=== PATIENT | female | born 1980 | race African-American/Black ===

== ENCOUNTER 2022-10-18 00:21 | Day surgery (SDC) | payer OTHER, SELFPAY ==
[2022-08-24 13:13] VITALS: BMI 31.7
--- NOTE | 2022-08-24 13:17 | PC.NURSE ---
Report to the Outpatient Waiting Room, entrance under the green pavilion located off [facility], at time 0700 on date 09/10/22. Planned Procedure Time: 0900. Time changes happen often and if your time is changed the preop area will call you the afternoon before. - You and your visitor will be asked to self-screen and do not enter if you have any COVID symptoms. - Only one visitor is requested with a max of two and NO children visitors are allowed at this time. - The patient visitor may be requested to leave or wait in car when not with patient due to distancing restrictions. - A mask is REQUIRED within the hospital. Patients may have clear liquids (water, carbonated beverages, clear teas, apple juice) until 3 hours prior to surgery with a maximum of 20 ounces. - No food from midnight until time of surgery Take the following medications with a SIP of water the morning of surgery: N/A Medications to discontinue per physician: N/A Date to take last dose: N/A Please no make-up, nail vincentian, hairspray, perfume, deodorant, or body powder the day of surgery. No jewelry (including any body piercings) or valuables the day of surgery, leave them at home. Please take a shower or bath the night before, or the morning of, surgery with an antibacterial soap. Wear comfortable, loose fitting clothing. - Jewelry must be removed prior to entering the operating room. Rings and piercings that are not removed may be cut off. - The hospital will not accept responsibility for valuables. - Please leave all valuables, including medications, at home the day of surgery. If you are going home after surgery, a licensed front end loader driver must drive you home. - NO public transportation without another adult if you receive anesthesia. - We recommend that an adult stay with you for 24 hours following discharge. - We also recommend that you do not drive, make important decision, drink alcoholic beverages, or take any drugs that were not prescribed by your health care provider for at least 24 hours after your discharge time. Follow any additional instructions given to you from your surgeon. If you or anyone in your household have experienced Covid symptoms in the past week, please notify your surgeon or the nurse liaison at the phone number below for possible testing. Telephone instructions given to PT - JOE LEAL and asked if any additional questions and then verbalized understanding. Patient advised to call surgeon office or pre surgery nurse liaison [phone] if any additional questions.
--- NOTE | 2022-09-09 11:08 | P.HP_ITS ---
H&P: HPI History of Present Illness Date/Time: 09/09/22 11:08 Chief Complaint: desire for sterilization Narrative: Michelle is a 42yo P2010, who presented to clinic as a new patient to discuss tubal/paragard. She has had this paragard in place since 2011; reports her cycles did get heavier and prolong but she did not want hormones. She knows she does not want any more children; would like to proceed with tubal. Review of Systems Constitutional: Constitutional: Denies chills, Denies fever(s) and Denies headache(s) Eyes: Eyes: Denies change in vision ENT: Denies dizziness and Denies headache(s) Cardiovascular: Cardiovascular: Denies chest pain and Denies dyspnea Respiratory: Respiratory: Denies cough and Denies dyspnea Gastrointestinal: Gastrointestinal: Denies abdominal pain and Denies change in stool character Genitourinary: Genitourinary: Denies abnormal menses, Denies pelvic pain, Denies vaginal discharge, Denies vaginal odor and Denies vaginal pruritus Neurologic: Denies dizziness and Denies headache(s) Psychiatric: Psychiatric: Denies anxiety and Denies depression [facility] Surgical History Surgical History (Updated 06/21/22 @ 08:49 by Yumi Rae MA) H/O gynecological procedure paragard insertion 2011 Family History Family History Grandparent Breast cancer Social History Social History (Updated 06/21/22 @ 08:50 by Yumi Rae MA) Smoking status: Never smoker Alcohol intake: current Alcohol use details: SOCIAL Substance use: current Substance use type: marijuana Living arrangements: with family Additional living arrangements comments: CHILDREN Gender identity (if verbalized by the patient): Female Spiritual care concerns: No Meds Home Medications and Allergies Home Medications Medication Instructions Recorded Confirmed Type copper 380 square mm intrauterine 1 device intrauterine ONCE 06/21/22 08/24/22 History device (ParaGard T 380A) Allergies Allergy/AdvReac Type Severity Reaction Status Date / Time hepatitis A virus vaccine Allergy Swelling Verified 08/24/22 13:13 Exam Const: General: cooperative, healthy appearing, comfortable and no acute d istress Orientation/consciousness: patient oriented x3 Resp: Effort & Inspection: normal respiratory effort Cardio: Rate: regular rate GI: Inspection: normal to inspection GI Palp: No abdominal tenderness and Yes Soft to palpation : Other: deferred to OR Skin: General skin exam: normal color Neuro: General: patient oriented x3 Extrem: General: normal to inspection Psych: Appearance: grossly normal Affect: normal affect Attitude: co operative Assessment and Plan Assessment and plan (1) Admission for sterilization: Code(s): Z30.2 - Encounter for sterilization Status: Acute (2) IUD (intrauterine device) in place: Code(s): Z97.5 - Presence of (intrauterine) contraceptive device Status: Acute Plan - proceed with laparoscopic bilateral tubal with IUD removal (possible h ysteroscopy) - risks and benefits explained in detail - [place] ster[place] form signed 06/21/22
[2022-10-04 11:35] VITALS: BMI 31.7
--- NOTE | 2022-10-04 11:36 | PC.NURSE ---
Report to the Outpatient Waiting Room, entrance under the green pavilion located off [facility], at time 0600 on date 10/18/22. Planned Procedure Time: 0730. Time changes happen often and if your time is changed the preop area will call you the afternoon before. - You and your visitor will be asked to self-screen and do not enter if you have any COVID symptoms. - Only one visitor is requested with a max of two and NO children visitors are allowed at this time. - The patient visitor may be requested to leave or wait in car when not with patient due to distancing restrictions. - A mask is optional within the hospital at this time. Patients may have clear liquids (water, carbonated beverages, clear teas, apple juice) until 3 hours prior to surgery with a maximum of 20 ounces. - No food from midnight until time of surgery Take the following medications with a SIP of water the morning of surgery: N/A DO NOT STOP ANY OF YOUR OTHER PRESCRIPTION MEDICATIONS PRIOR TO SURGERY EXCEPT THE FOLLOWING Medications to discontinue per physician: N/A Date to take last dose: N/A Please no make-up, nail malawian, hairspray, perfume, deodorant, or body powder the day of surgery. No jewelry (including any body piercings) or valuables the day of surgery, leave them at home. Please take a shower or bath the night before, or the morning of, surgery with an antibacterial soap. Wear comfortable, loose fitting clothing. - Jewelry must be removed prior to entering the operating room. Rings and piercings that are not removed may be cut off. - The hospital will not accept responsibility for valuables. - Please leave all valuables, including medications, at home the day of surgery. If you are going home after surgery, a licensed shuttle driver must drive you home. - NO public transportation without another adult if you receive anesthesia. - We recommend that an adult stay with you for 24 hours following discharge. - We also recommend that you do not drive, make important decision, drink alcoholic beverages, or take any drugs that were not prescribed by your health care provider for at least 24 hours after your discharge time. Follow any additional instructions given to you from your surgeon. If you or anyone in your household have experienced Covid symptoms in the past week, please notify your surgeon or the nurse liaison at the phone number below for possible testing. Telephone instructions given to PT - JOE LEAL and asked if any additional questions and then verbalized understanding. Patient advised to call surgeon office or pre surgery nurse liaison [phone] if any additional questions.
--- NOTE | 2022-10-16 14:48 | PM.IMHP ---
H&P: HPI History of Present Illness Date/Time: 10/16/22 14:48 42-year-old 3 para 2011 female presents for permanent sterilization. She currently has an IUD in place, which has , and she would like to have this removed as well. Chief Complaint: Undesired fertility Review of Systems Review of Systems: All systems reviewed & are unremarkable except as noted in HPI and below PMFSH Surgical History Surgical History H/O gynecological procedure paragard insertion 2011 Family History Family History Grandparent Breast cancer Social History Social History Smoking status: Never smoker Alcohol intake: current Alcohol use details: SOCIAL Substance use: current Substance use type: marijuana Living arrangements: with family Additional living arrangements comments: CHILDREN Occupation/Education: occupation Gender identity (if verbalized by the patient): Female Spiritual care concerns: No Meds Home Medications and Allergies Home Medications Medication Instructions Recorded Confirmed Type copper 380 square mm intrauterine 1 device intrauterine ONCE 06/21/22 10/04/22 History device (ParaGard T 380A) Allergies Allergy/AdvReac Type Severity Reaction Status Date / Time hepatitis A virus vaccine Allergy Swelling Verified 10/04/22 11:35 Exam Const: General: cooperative, healthy appearing and comfortable Resp: Effort & Inspection: normal respiratory effort Auscultation: clear to auscultation bilaterally Cardio: Rate: regular rate Rhythm: regular rhythm GI: Inspection: normal to inspection Auscultation: normal bowel sounds : External Female Exam: normal external appearance Speculum Exam - Vagina: normal appearance of the vagina Speculum Exam - Cervix: normal appearance of the cervix Bimanual exam- vagina & uterus: normal bimanual exam Bimanual Exam- Adnexa, other: normal adnexae Assessment and Plan Assessment and plan (1) Encounter for female sterilization procedure: Code(s): Z30.2 - Encounter for sterilization Status: Acute Assessment and Plan: will proceed with laparoscopic tubal ligation via electrocautery (2) IUD (intrauterine device) in place: Code(s): Z97.5 - Presence of (intrauterine) contraceptive device Status: Acute Assessment and Plan: hysteroscopic removal of IUD concurrently.
--- NOTE | 2022-10-17 14:24 | P.PNAN_ITS ---
Anes - Initial Pre Proc Eval Procedure: Operation Date: 10/18/22 07:30 Proposed Procedures p Laparoscopic Bilateral Tubal Ligation, Hysteroscopy with Intrauterine Device Removal - Eliel De Paz MD Date/Time: 10/17/22 14:24 Surgeon: Eliel De Paz MD Pre Op Diagnosis: Desires Sterilization, Retained IUD Patient Data Age: 42 Gender: F Height: 1.63 m Weight: 83.91 kg Allergies Allergy/AdvReac Type Severity Reaction Status Date / Time hepatitis A virus vaccine Allergy Swelling Verified 10/18/22 07:17 Home Medications Medication Instructions Recorded Confirmed Type copper 380 square mm intrauterine 1 device intrauterine ONCE 06/21/22 10/18/22 History device (ParaGard T 380A) Patient hx anesthesia problems: none Family hx anesthesia problems: none Results Review: All pre-operative results and documents have been reviewed as part of the pre- operative evaluation. [facility] Past Medical History Medical History (Updated 10/17/22 @ 14:25 by Young Pitts MD) IUD (intrauterine device) in place Obesity Surgical History Surgical History H/O gynecological procedure paragard insertion 2011 Family History Family History Grandparent Breast cancer Social History Social History Smoking status: Never smoker Alcohol intake: current Alcohol use details: SOCIAL Substance use: current Substance use type: marijuana Living arrangements: with family Additional living arrangements comments: CHILDREN Occupation/Education: occupation Gender identity (if verbalized by the patient): Female Spiritual care concerns: No Anes - Eval Final PreProcedure Day of Procedure 10/17/22 14:24 Patient weight: obese Heart: regular rate and rhythm Lungs: clear to auscultation and normal air movement Airway: Mallampati scale class II Neurological: alert and oriented Last oral intake: >/= 8 hours ASA classification: II Emergent: no Anesthetic plan: proceed Anesthesia type and monitoring: general ETT Results Review: All pre-operative results and documents have been reviewed as part of the pre- operative evaluation. Informed Consent: The patient's anesthetic plan and its attendant risks and benefits were discussed with the patient/family/POA. Questions were solicited and answers provided to the satisfaction of the patient/family/POA.
[2022-10-18] MEDS: LACTATED RINGERS 1,000 ML 30 ML IV CONT (07:02)
[2022-10-18] MEDS: ACETAMINOPHEN 500 MG TABLET 1000 MG PO (07:04)
[2022-10-18] MEDS: KETOROLAC 15 MG/ML VIAL (*BKC) IV PUSH (07:05)
[2022-10-18 07:06] LABS: Hematocrit 34.1 % (37.0-47.0); Hemoglobin 10.8 g/dL (12.0-15.0); Mean Corpuscular HGB Conc 31.7 g/dl (32-36); Mean Corpuscular Hemoglobin 25.5 pg (26-34); Mean Corpuscular Volume 80.6 fl (80-100); Mean Platelet Volume 9.6 fl (7.4-10.4); Platelet Count Result 363 k/mm3 (150-375); Red Blood Count 4.23 M/mm3 (4.2-5.4); Red Cell Distribution Width 15.6 % (11.5-14.5); White Blood Count 6.2 K/mm3 (4.5-10.0)
[2022-10-18 07:11] VITALS: BP 100/65; PULSE 66; RESP 16; TEMP 37.2; O2SAT 100
--- NOTE | 2022-10-18 07:13 | WPDHPUPDATE1 ---
History and Physical Update Update Date/Time: 10/18/22 07:13 History and Physical has been reviewed, including an updated exam of the patient. There are NO changes in the patient's condition. Risks, benefits, and alternatives have been discussed and questions answered. Patient agrees to proceed with procedure.
[2022-10-18] MEDS: ceFAZolin 2 GM/D5W 50 ML 2 GM/50 ML BAG IVPB (08:28)
--- NOTE | 2022-10-18 09:05 | W.PM.PROC2 ---
Procedure Note - Detailed Date of Procedure 10/18/22 Pre-op Diagnosis 1. Retained IUD 2. Female sterilization requested Post-op Diagnosis Same (3. Fibroid uterus) Procedure Performed 1. Removal of IUD 2. Laparoscopic bilateral tubal ligation via electrocautery Surgeon Eliel De Paz MD Anesthesia General Findings 1. IUD retained in the intrauterine cavity 2. Enlarged uterus to the umbilicus Description of Procedure Patient was prepped and draped usual manner for this procedure. Vaginal exam revealed no IUD string, cervix was dilated polyp forceps were placed in IUD was removed without difficulty. Hysteroscopy was not required. Periumbilical incision was made and trocar was placed through under direct visualization. Immediate pump placement enlarged fibroid uterus was noted. Second incision was made and through this the bipolar clamp was placed and the left tube was cauterized in 3 separate places taking care to not come into contact with adjacent normal tissue. The right tube could not isolated readily, and right lower quadrant incision was then made. While deflecting the uterus to the patient's left the right tube was identified and cauterized in 3 separate places in the same manner has been done on the left. There was no bleeding and no ever evidence of abnormality and the procedure was considered terminated. Gas was allowed to escape and incisions were then approximated using 4-0 Monocryl. Patient was sent to the recovery room in stable condition. Estimated Blood Loss 10 Drains No Packing No Pathology None sent Complications No immediate complications Condition Stable Disposition PACU [facility] Billing Surgery - Charge Forward: Surgery Billing
[2022-10-18 09:20] VITALS: BP 104/73; PULSE 99; RESP 16; TEMP 36.8; O2SAT 95
[2022-10-18 09:35] VITALS: BP 84/53; PULSE 65; RESP 16; O2SAT 100
[2022-10-18] MEDS: fentaNYL CITRATE INJ (*CRX) 100 MCG/2 ML VIAL 25 MCG IV PUSH (09:45)
[2022-10-18 09:50] VITALS: BP 110/75; PULSE 63; RESP 16; O2SAT 97
[2022-10-18 10:00] VITALS: BP 106/69; PULSE 59; RESP 16
[2022-10-18 10:30] VITALS: BP 121/85; PULSE 64; RESP 12
== END 2022-10-18 10:55 | disposition home or self-care (01) ==
PROVIDERS: Visit Provider Obstetrics & Gynecology
PROC: 0UDB8ZZ Extraction of Endometrium, Via Natural or Artificial Opening Endoscopic (ICD-10-PCS; CPT 58558; principal; 2022-10-18 07:30)
DX: Z30.2 Encounter for sterilization (principal); T83.32XA Displacement of intrauterine contraceptive device, initial encounter; Y84.8 Other medical procedures as the cause of abnormal reaction of the patient, or of later complication, without mention of misadventure at the time of the procedure; E66.9 Obesity, unspecified; Z68.32 Body mass index [BMI] 32.0-32.9, adult; F12.90 Cannabis use, unspecified, uncomplicated
CPT/HCPCS: 58670; 58301; 36415; 85027; A9270; J0690; J1100; J1885; J2250; J2405; J2704; J2710; J3010; J7030; J7120